=== PATIENT | male | born 1985 | race Caucasian/White ===

== ENCOUNTER 2017-03-08 15:04 | Emergency (ER) | payer MEDICAID ==
[2017-03-08] MEDS ORDERED: IBUPROFEN 400 MG TABLET PO ONE (15:23)
[2017-03-08] MEDS ORDERED: IBUPROFEN 400 MG TABLET ONE (15:27)
--- NOTE | 2017-03-08 15:29 | ERNOTE ---
ENT HPI Presenting Symptoms: dental pain Time Seen by Provider: 03/08/17 15:14 Source: patient Exam Limitations: no limitations - Immun/Allergies/Home Medications Immunizations: IMMUNIZATION HX Immunizations Up to Date Yes History of Influenza Vaccine Yes Hx Pneumococcal Vaccination Yes Allergies/Adverse Reactions: Allergies Allergy/AdvReac Type Severity Reaction Status Date / Time No Known Allergies Allergy Unverified 03/08/17 15:13 Home Medications: HOME MEDICATIONS Acetaminophen [Tylenol] 325 mg PO PRN PRN 03/08/17 [Last Taken Unknown] Amoxicillin 500 mg PO TID #30 capsule 03/08/17 [Last Taken Unknown] Ibuprofen [Motrin] 800 mg PO TID PRN #60 tab 03/08/17 [Last Taken Unknown] - History of Present Illness Narrative: Patient had a left lower molar break off two days ago and has had increasing pain since that is not controlled with the tylenol that he has been taking Date (Duration): 03/06/17 Review of Systems - Review of Systems Constitutional: Absent: fever ENT: Absent: nose pain, nasal drainage, sore throat Respiratory: Present: cough. Absent: shortness of breath Cardiology: Absent: chest pain Gastrointestinal/Abdominal: Absent: nausea, vomiting, diarrhea, abdominal pain Genitourinary: Present: no symptoms reported Musculoskeletal: Present: no symptoms reported Skin: Present: no symptoms reported Neurological: Absent: headache, weakness, numbness - Patient's Past Medical History Patient History - Medical: No pertinent hx Patient History - Cardiac/Respiratory: No pertinent hx Patient History - Cancer: No Hx of Cancer Patient History - Surgical Procedures: No surgical history Patient History - Other: None - Social History Living Situations: home Psych History: No pertinent hx Smoking Status: Current every day smoker Alcohol Use: rarely Drug Use: marijuana - Immunizations Immunizations Up to Date: Yes Hx Pneumococcal Vaccination: Yes History of Influenza Vaccine: Yes Physical Exam - Physical Exam General Appearance: Present: wd/wn, alert, no apparent distress Ears, Nose, Throat: Present: normal pharynx, other - poor dentition with multiple fractured teeth, molar in left lower jaw fractured with surrounding gums swollen and tender Neck: Absent: lymphadenopathy (R), lymphadenopathy (L) Respiratory: Present: no respiratory distress, normal breath sounds, no accessory muscle use, lungs clear Cardiovascular/Chest: Present: regular rate, rhythm Neurological Exam: Present: alert, oriented, normal mood/affect Skin Exam: Present: normal color, warm/dry ED Progress - Vital Signs Patient's Vital Signs:: I have reviewed the patient's vital signs. Vital Signs: Vital Signs 03/08/17 15:07 Temperature 37.0 C Pulse Rate 91 Respiratory 16 Rate Blood Pressure 146/98 O2 Sat by Pulse 99 Oximetry - Progress/Reassessment Chief Complaint: Dental Problem Departure Clinical Impression: Dental abscess - Departure Disposition: Home self-care Condition: Good Instructions: Dental Abscess, [id number] Additional Instructions: make sure to call a dentist KRISTEL Prescriptions: Amoxicillin 500 mg PO TID #30 capsule Ibuprofen [Motrin] 800 mg PO TID PRN #60 tab PRN Reason: Pain
[2017-03-08 15:32] VITALS: BP 142/89
== END 2017-03-08 15:33 | disposition home or self-care (01) ==
LOC: ER 15:04
DX: K04.7 Periapical abscess without sinus (principal); F17.200 Nicotine dependence, unspecified, uncomplicated